=== PATIENT | female | born 1995 | race Caucasian/White ===

== ENCOUNTER 2020-11-25 11:07 | Emergency (ER) | payer SELFPAY ==
[2020-11-25] MEDS ORDERED: Sodium Chloride 0.9% 1,000 ML IV SCH (11:30)
[2020-11-25] MEDS ORDERED: Ondansetron 4 MG/2 ML SDV IVPUSH ONE (11:30)
[2020-11-25] MEDS ORDERED: Sodium Chloride 0.9% 10 ML Syringe FLUSH PRN ×2 (11:30→12:59)
--- NOTE | 2020-11-25 11:41 | EDM.PDOC ---
ED HPI GENERAL MEDICAL PROBLEM - General Chief Complaint: Abdominal Pain Stated Complaint: LOWER ABDOMINAL PAIN Time Seen by Provider: 11/25/20 11:29 Source of Information: Reports: Patient, RN Notes Reviewed History Limitations: Reports: No Limitations - History of Present Illness INITIAL COMMENTS - FREE TEXT/NARRATIVE: Patient is a 25-year-old female who presents to the ER for the evaluation of her right lower abdomen pain. States that this has been present since yesterday, seems to be constantly there but does worsen and get sharper. She states that she has been dealing with telehealth for symptoms that she thought were related to UTI, and is recently finished cephalexin prescription yesterday for the suspected UTI. She went to the walk-in clinic today, for this abdominal pain that did not seem to get any better, did a urinalysis, and she had a trace of leukocyte esterase in the urine, but the patient is concerned about her appendix as well. She still retains her appendix and gallbladder. Patient states had a bowel movement this morning this was normal for her. Not having any fevers or chills, cough shortness of breath, nausea/vomiting/diarrhea. States that she had a baby in August, she has been breast-feeding since then, and denies any chance of at today's visit. She did take some Motrin for her pain, and this did not seem to be helping much. Pain does not seem to radiate anywhere, she also tried taking a warm bath yesterday but it did not help. She has no history of ovarian cysts. She is a G2, P2. Right Lower Abdomen Pain Score (Numeric/FACES): 5 - Related Data Allergies Allergy/AdvReac Type Severity Reaction Status Date / Time No Known Allergies Allergy Verified 11/25/20 11:17 Home Meds: Home Meds . [No Known Home Meds] 11/25/20 [History] Past Medical History [employer] History: Reports: : 2 Para: 2 Endocrine/Metabolic History: Reports: Obesity/BMI 30+ Social & Family History - Tobacco Use Tobacco Use Status *Q: Never Tobacco User - Caffeine Use Caffeine Use: Reports: Coffee - Recreational Drug Use Recreational Drug Use: No ED ROS GENERAL - Review of Systems Review Of Systems: Comprehensive ROS is negative, except as noted in HPI. ED EXAM, GI/ABD - Physical Exam Exam: See Below Exam Limited By: No Limitations General Appearance: Alert, WD/WN, No Apparent Distress Respiratory/Chest: No Respiratory Distress, Lungs Clear, Normal Breath Sounds, No Accessory Muscle Use, Chest Non-Tender Cardiovascular: Normal Peripheral Pulses, Regular Rate, Rhythm, No Edema GI/Abdominal Exam: Normal Bowel Sounds, Soft, No Distention, No Mass, Rebound (RLQ mainly), Tender (RLQ mainly) Extremities: Normal Inspection, Normal Capillary Refill Neurological: Alert, Oriented, Normal Cognition, No Motor/Sensory Deficits Psychiatric: Normal Affect, Normal Mood Skin Exam: Warm, Dry, Intact, Normal Color, No Rash Course - Vital Signs Last Recorded V/S: Last Vital Signs Temp 96.2 F L 11/25/20 11:14 Pulse 83 11/25/20 11:14 Resp 16 11/25/20 11:14 BP 136/90 11/25/20 11:14 Pulse Ox 98 11/25/20 11:14 - Orders/Labs/Meds Orders: Active Orders 24 hr Category Date Time Status Peripheral IV Care [RC] . DIRECTED Care 11/25/20 11:30 Ordered Abdomen Pelvis w Cont [CT] Stat Exams 11/25/20 11:30 Ordered Sodium Chloride 0.9% [Normal Saline] 1,000 ml Med 11/25/20 11:30 Ordered IV ASDIRECTED Sodium Chloride 0.9% [Saline Flush] Med 11/25/20 11:30 Ordered 10 ml FLUSH ASDIRECTED PRN Sodium Chloride 0.9% [Saline Flush] Med 11/25/20 12:59 Active 10 ml FLUSH ONETIME PRN Peripheral IV Insertion Adult [OM.PC] Stat Oth 11/25/20 11:30 Ordered Medication Orders Sodium Chloride (Normal Saline) 1,000 mls @ 999 mls/hr IV ASDIRECTED RIK Last Admin: 11/25/20 11:50 Dose: 999 mls/hr Documented by: MATLBIL Sodium Chloride (Sodium Chloride 0.9% 10 Ml Syringe) 10 ml FLUSH ASDIRECTED PRN PRN Reason: Keep Vein Open Last Admin: 11/25/20 11:57 Dose: 10 ml Documented by: MATLBIL Sodium Chloride (Sodium Chloride 0.9% 10 Ml Syringe) 10 ml FLUSH ONETIME PRN PRN Reason: IV FLUSH Last Admin: 11/25/20 13:07 Dose: 10 ml Documented by: JESUS Labs: Laboratory Tests 11/25/20 11/25/20 11/25/20 Range/Units 11:51 11:51 11:51 WBC 5.85 (3.98-10.04) K/mm3 RBC 4.45 (3.98-5.22) M/mm3 Hgb 12.3 (11.2-15.7) gm/dl Hct 38.6 (34.1-44.9) % MCV 86.7 (79.4-94.8) fl MCH 27.6 (25.6-32.2) pg MCHC 31.9 L (32.2-35.5) g/dl RDW Std Deviation 41.9 (36.4-46.3) fL Plt Count 359 (182-369) K/mm3 MPV 9.3 L (9.4-12.3) fl Neut % (Auto) 61.6 (34.0-71.1) % Lymph % (Auto) 28.0 (19.3-51.7) % [place] % (Auto) 6.7 (4.7-12.5) % Eos % (Auto) 3.2 (0.7-5.8) Baso % (Auto) 0.2 (0.1-1.2) % Neut # (Auto) 3.60 (1.56-6.13) K/mm3 Lymph # (Auto) 1.64 (1.18-3.74) K/mm3 [place] # (Auto) 0.39 H (0.24-0.36) K/mm3 Eos # (Auto) 0.19 (0.04-0.36) K/mm3 Baso # (Auto) 0.01 (0.01-0.08) K/mm3 Sodium 141 (136-145) mEq/L Potassium 4.0 (3.5-5.1) mEq/L Chloride 105 (98-107) mEq/L Carbon Dioxide 29 (21-32) mEq/L Anion Gap 11.0 (5-15) BUN 11 (7-18) mg/dL Creatinine 0.8 (0.55-1.02) mg/dL Est Cr Clr Drug Dosing 95.05 mL/min Estimated GFR (MDRD) > 60 (>60) mL/min BUN/Creatinine Ratio 13.8 L (14-18) Glucose 81 (70-99) mg/dL Calcium 9.2 (8.5-10.1) mg/dL Total Bilirubin 0.3 (0.2-1.0) mg/dL AST 17 (15-37) U/L ALT 29 (14-59) U/L Alkaline Phosphatase 83 (46-116) U/L C-Reactive Protein 0.3 (<1.0) mg/dL Total Protein 7.7 (6.4-8.2) g/dl Albumin 3.6 (3.4-5.0) g/dl Globulin 4.1 gm/dL Albumin/Globulin Ratio 0.9 L (1-2) Lipase 104 (73-393) U/L HCG, Qual Negative (NEGATIVE) Meds: Medications Generic Name Dose Route Start Last Admin Trade Name Freq PRN Reason Stop Dose Admin Sodium Chloride 1,000 mls @ 999 mls/hr 11/25/20 11:30 11/25/20 11:50 Normal Saline IV 999 mls/hr ASDIRECTED RIK Administration Sodium Chloride 10 ml 11/25/20 11:30 11/25/20 11:57 Sodium Chloride 0.9% 10 Ml Syringe FLUSH 10 ml ASDIRECTED PRN Administration Keep Vein Open Sodium Chloride 10 ml 11/25/20 12:59 11/25/20 13:07 Sodium Chloride 0.9% 10 Ml Syringe FLUSH 10 ml ONETIME PRN Administration IV FLUSH Discontinued Medications Generic Name Dose Route Start Last Admin Trade Name Freq PRN Reason Stop Dose Admin Diatrizoate Meglum/Diatrizoate Sod 120 ml 11/25/20 12:59 11/25/20 13:08 Diatrizoate Meglumine/Diatrizoate Sodium 37% 120 Ml Bottle PO 11/25/20 13:00 60 ml ONETIME ONE Administration Iopamidol 100 ml 11/25/20 12:59 11/25/20 13:07 Iopamidol 612 Mg/Ml 100 Ml Bottle IVPUSH 11/25/20 13:00 100 ml ONETIME ONE Administration Ondansetron HCl 4 mg 11/25/20 11:30 11/25/20 11:51 Ondansetron 4 Mg/2 Ml Sdv IVPUSH 11/25/20 11:31 4 mg ONETIME ONE Administration - Re-Assessments/Exams Free Text/Narrative Re-Assessment/Exam: 11/25/20 11:40 Patient presents to the ER for her right lower quadrant pain, for today's purposes we will rule out appendicitis that she is tender in her right lower quadrant does have some rebound. IV has been placed at time of triage, will get some labs, abdomen pelvis CT for ongoing management. Patient denies any chance of but we will go ahead and get a hCG off of her blood to make sure that she is indeed not . Urinalysis from the walk-in clinic demonstrates a trace of leukocyte Estrace, which could just be slight contamination. Nitrites were negative, and she is denying any other further symptoms of UTI at today's visit. 11/25/20 14:13 Patient laboratory evaluation is unremarkable for any acute findings, CT is also unremarkable for any acute findings. She does have a rather large stool burden throughout her colon, and a rather large stool ball in her right lower abdomen, this could be causing some of her issues the oral contrast should help provide somewhat of a laxative effect, if her symptoms do not seem to be getting much better in a day or 2 after she has had a few good bowel movements, will have her follow-up for ongoing management. Departure - Departure Time of Disposition: 14:14 Disposition: Home, Self-Care 01 Condition: Good Clinical Impression: RLQ abdominal pain Constipation Qualifiers: Constipation type: other constipation type Qualified Code(s): K59.09 - Other constipation - Discharge Information *PRESCRIPTION DRUG MONITORING PROGRAM REVIEWED*: No *COPY OF PRESCRIPTION DRUG MONITORING REPORT IN PATIENT CRISSY: No Instructions: Constipation, Adult, [id number], Abdominal Pain, Adult, [id number] Referrals: PCP,None [Primary Care Provider] - Forms: ED Department Discharge Additional Instructions: You were evaluated in the ER today for your abdominal pain. Thorough evaluation done at today's visit included labs, and an abdomen pelvis CT which demonstrated no acute findings of appendicitis at today's visit. There are no other worrisome signs or symptoms of acute bacterial infection that would be the cause of your pain for today's visit. You do however have a large stool burden throughout your entire colon, with a rather large portion of stool within your right lower quadrant, The oral contrast given to you today should provide somewhat of a laxative effect, you may obtain a bottle of magnesium citrate at a pharmacy or [facility], and take this to provide a further bowel cleanse. If your symptoms do not seem to be getting much better after you have had a few good bowel movements, do not hesitate to seek care for ongoing medical management. If you should develop any fevers, nausea/vomiting/diarrhea, or any worsening symptoms do not hesitate to seek care for reevaluation. Sepsis Event Note (ED) - Evaluation Sepsis Screening Result: No Definite Risk - Focused Exam Vital Signs: Vital Signs Temp Pulse Resp BP Pulse Ox 11/25/20 11:14 96.2 F L 83 16 136/90 98 - My Orders Last 24 Hours: My Active Orders 11/25/20 11:30 Peripheral IV Care [RC] . DIRECTED Abdomen Pelvis w Cont [CT] Stat Sodium Chloride 0.9% [Normal Saline] 1,000 ml IV ASDIRECTED Sodium Chloride 0.9% [Saline Flush] 10 ml FLUSH ASDIRECTED PRN Peripheral IV Insertion Adult [OM.PC] Stat 11/25/20 12:59 Sodium Chloride 0.9% [Saline Flush] 10 ml FLUSH ONETIME PRN - Assessment/Plan Last 24 Hours: My Active Orders 11/25/20 11:30 Peripheral IV Care [RC] . DIRECTED Abdomen Pelvis w Cont [CT] Stat Sodium Chloride 0.9% [Normal Saline] 1,000 ml IV ASDIRECTED Sodium Chloride 0.9% [Saline Flush] 10 ml FLUSH ASDIRECTED PRN Peripheral IV Insertion Adult [OM.PC] Stat 11/25/20 12:59 Sodium Chloride 0.9% [Saline Flush] 10 ml FLUSH ONETIME PRN
[2020-11-25] MEDS ORDERED: Diatrizoate Meglumine/Diatrizoate Sodium 37% 120 ML Bottle PO ONE (12:59)
[2020-11-25] MEDS ORDERED: Iopamidol 612 MG/ML 100 ML Bottle IVPUSH ONE (12:59)
--- NOTE | 2020-11-25 15:34 | CT ---
CT abdomen and pelvis Technique: Multiple axial sections were obtained from above the dome of the diaphragm inferiorly through the pubic symphysis. Intravenous and oral contrast was utilized. Delayed images were also obtained through the bladder. Comparison: No prior abdominal imaging is available. Findings: Visualized lung bases show nothing acute. Liver contains no focal parenchymal abnormality. Spleen appears within normal limits. Adrenal glands show no nodule. Gallbladder contains no calcified gallstones. Kidneys show symmetric contrast enhancement with no hydronephrosis or mass being seen. Pancreas is within normal limits. Abdominal aorta shows no aneurysm. No retroperitoneal adenopathy or mesenteric abnormalities are seen. Appendix is seen which is normal in size. No pelvic mass or adenopathy is seen. Mild amount of increased stool is noted within the colon. No free fluid or inflammatory change is seen. Delayed images show contrast within the distal ureters as well as within the bladder. Bone window settings were reviewed. No acute osseous abnormality is appreciated. Moderate degenerative change is seen within the right apophyseal joints at L5-S1. Impression: 1. Mild increased stool within the colon. Mild degenerative change within the spine as noted above. 2. Nothing acute is appreciated on CT study of the abdomen and pelvis. Diagnostic code #2 I agree with preliminary report from [facility], finalized on 11/25/20, 2:52 PM CDT, code 1
== END 2020-11-25 14:26 | disposition home or self-care (01) ==
LOC: JD.ED 11:07
DX: K59.09 Other constipation (principal); E66.9 Obesity, unspecified; Z68.31 Body mass index [BMI] 31.0-31.9, adult
CPT/HCPCS: 36415; 74177; 80053; 83690; 84703; 85025; 86140; 96374; 99284; J2405; J7030; Q9963; Q9967